=== PATIENT | female | born 1980 | race Caucasian/White ===

== ENCOUNTER 2021-05-11 16:55 | Emergency (ER) | payer SELFPAY ==
[~2021-05-11] VITALS: Ht 165.1 cm; Wt 92.1 kg
[~2021-05-11 16:55] MED LIST: Adipex-P37.5 MG; BIRTH CONTROL; CEPH500 PO; HYDACE5 PO; HYDR1TAB94; KETO10 PO; LEVSOD125; Norco 5-325 Ta1 EACH PO; OXYACE5T PO; PROM25 PO; RXHYDACE PO; Restoril30 MG PO; SERT50 PO; THYR60 PO; TIROSINT125 MCG PO; ZOLP10 PO
[2021-05-11] MEDS ORDERED: BUPR150ER (17:53)
[2021-05-11] MEDS ORDERED: Vistaril50 MG (17:53)
[2021-05-11] MEDS ORDERED: EUTHYROX125 MC1 (17:53)
== END 2021-05-11 18:58 | disposition home or self-care (01) ==
LOC: ER 16:55
DX: S06.0X0A Concussion without loss of consciousness, initial encounter (principal); S01.01XA Laceration without foreign body of scalp, initial encounter; Z88.8 Allergy status to other drugs, medicaments and biological substances; V80.919A Animal-rider injured in unspecified transport accident, initial encounter
CPT/HCPCS: 12001; 70450; 72125; 73030; 90471; 90714; 99284-25; A9270

== ENCOUNTER → 2022-06-25 | Outpatient (CLI) | payer OTHER ==
[~2022-06-25] MED LIST changes: +BUPR150ER; +EUTHYROX125 MC1; +Vistaril50 MG
[2022-06-27 14:32] LABS: Performing Lab SYMBIODX; Test Name TISSUE BIOPSY
== END | disposition home or self-care (01) ==
LOC: LAB SHORT 08:04 → LAB 08:04
PROVIDERS: Pathology Clinical Pathology/Laboratory Medicine
DX: C49.4 Malignant neoplasm of connective and soft tissue of abdomen (principal)
CPT/HCPCS: 88305

== ENCOUNTER 2022-09-19 09:30 | Day surgery (SDC) | payer OTHER ==
[2022-09-19] VITALS (10 sets, daily range): BP systolic 94–120; BP diastolic 55–83
[~2022-09-19] VITALS: Ht 165.1 cm; Wt 83.4 kg
[2022-09-19] MEDS ORDERED: TRAZ100 PO (11:01)
--- NOTE | 2022-09-19 14:19 | NUR ---
DISCHARGE NOTE PT A&OX4, VSS, BREATHING RA, NO COMPLAINTS, TOLERATING PO FLUIDS, AT BEDSIDE. Dressing to procedure site clean, dry, intact with no visible drainage, swelling, erythema or bruising noted. Discharge instructions reviewed with patient. Patient verbalizes understanding. Copy given to patient to take home. Discharged via wheelchair to private car for ride home.
== END 2022-09-19 14:20 | disposition home or self-care (01) ==
LOC: ORSCMMR 09:30 → ORD 11:00 → ORSCMMR 14:20
PROVIDERS: Surgery
PROC: 0JB80ZX Excision of Abdomen Subcutaneous Tissue and Fascia, Open Approach, Diagnostic (ICD-10-PCS; principal; 2022-09-19 12:00)
DX: D23.5 Other benign neoplasm of skin of trunk (principal); E06.3 Autoimmune thyroiditis; Z79.899 Other long term (current) drug therapy
CPT/HCPCS: 88305; J0690; J1100; J1885; J2250; J2405; J2704; J2765; J3010; J7120